=== PATIENT | female | born 1970 | race Caucasian/White ===

== ENCOUNTER 2017-03-25 05:32 | Emergency (ER) | payer OTHER ==
[~2017-03-25] VITALS: Ht 167.6 cm; Wt 113.4 kg
--- NOTE | ~2017-03-25 | EKG ---
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
[~2017-03-25 05:32] MED LIST: NOHOMEMEDICATIONS
[2017-03-25 07:26] LABS: URINE BILIRUBIN NEGATIVE (Negative); URINE BLOOD NEGATIVE (Negative); URINE CLARITY CLEAR; URINE COLOR YELLOW; URINE GLUCOSE-RANDOM* NEGATIVE (Negative); URINE KETONES NEGATIVE (Negative); URINE LEUKOCYTES-REFLEX NEGATIVE (Negative); URINE NITRITE-REFLEX NEGATIVE (Negative); URINE PROTEIN (DIPSTICK) NEGATIVE (Negative); URINE SPECIFIC GRAVITY 1.015 (1.005-1.035); URINE UROBILINOGEN 0.2 E.U./dl (0.2-1.0)
[2017-03-25] MEDS ORDERED: ALBUTEROL2.5 MG/31 INH (08:16)
== END 2017-03-25 08:40 | disposition home or self-care (01) ==
LOC: ER 05:32
PROVIDERS: Emergency Medicine
DX: J45.901 Unspecified asthma with (acute) exacerbation (principal); Z88.0 Allergy status to penicillin; Z88.6 Allergy status to analgesic agent; Z91.018 Allergy to other foods; Z88.5 Allergy status to narcotic agent; Z91.011 Allergy to milk products

== ENCOUNTER 2019-09-22 08:33 | Emergency (ER) | payer OTHER ==
[~2019-09-22] VITALS: Ht 167.6 cm; Wt 112.0 kg
[~2019-09-22 08:33] MED LIST changes: +ALBUTEROL2.5 MG/31 INH
[2019-09-22] MEDS ORDERED: PROAIR HFA8.5 GM INH (08:58)
[2019-09-22] MEDS ORDERED: PREDNISONE 20 M20 MG PO (10:23)
[2019-09-22] MEDS ORDERED: VENTOLIN HFA 1818 GM INH (10:23)
[2019-09-22 11:12] VITALS: BP 104/75
== END 2019-09-22 11:13 | disposition home or self-care (01) ==
LOC: ER 08:33
DX: T63.461A Toxic effect of venom of wasps, accidental (unintentional), initial encounter (principal); J45.901 Unspecified asthma with (acute) exacerbation; Z90.711 Acquired absence of uterus with remaining cervical stump; Z79.899 Other long term (current) drug therapy; Z91.018 Allergy to other foods; Z88.8 Allergy status to other drugs, medicaments and biological substances; Z88.5 Allergy status to narcotic agent; Z91.011 Allergy to milk products; Z88.0 Allergy status to penicillin; Z88.6 Allergy status to analgesic agent; Y92.89 Other specified places as the place of occurrence of the external cause